=== PATIENT | male | born 1980 | race Caucasian/White ===

== ENCOUNTER 2016-09-15 12:28 | Emergency (ER) | payer OTHER ==
[~2016-09-15] VITALS: Ht 157.5 cm; Wt 81.6 kg
--- NOTE | 2016-09-15 13:07 | ED GENERAL ADULT ---
History of Present Illness General Chief Complaint: General Adult Stated Complaint: "I THINK MY RIBS ARE BROKEN" Source: patient Exam Limitations: no limitations Vital Signs & Intake/Output Vital Signs & Intake/Output Vital Signs Date Time Temp Pulse Resp B/P Pulse O2 O2 Flow FiO2 Ox Delivery Rate 09/15 1436 98.4 70 120/60 09/15 1300 Room Air 09/15 1234 98.3 76 20 128/82 95 Room Air Allergies Coded Allergies: Penicillins (RASH 09/15/16) Reconcile Medications Oxycodone HCl/Acetaminophen (Percocet 5-325 MG Tablet) 5 MG-325 MG TABLET 1-2 TAB PO Q6P PRN pain Triage Note: PT STATES HE HAD A MASSAGE A WEEK AGO AND THE WOMAN STOOD ON HIM. STATES HE THINKS SHE BROKE HIS RIBS. STATES PAIN IN ON RIGHT SIDE AND HARD TO TAKE DEEP BREATHS Triage Nurses Notes Reviewed? yes Onset: Abrupt Duration: week(s): (1), constant, continues in ED Timing: recent history Injury Environment: home No Modifying Factors: none HPI: 36-year-old male comes into emergency room with complaints of right sided rib pain. Patient reports that he had gotten a massage about 5-6 days ago and the masseuse was standing on his back and since then he's had some severe pain to his right rib area. Pain is worse with any type of bending. Hurts with a deep breath. Patient feels like he may have broke something. Patient has point tenderness. Denies any other associated trauma that he can recall. Denies any other associated symptoms. Past History Travel History Traveled to [place] past 21 day No Medical History Any Pertinent Medical History? none Surgical History Surgical History: non-contributory Psychosocial History What is your primary language Arabic Tobacco Use: Never used ETOH Use: occasional use Illicit Drug Use: denies illicit drug use Family History Hx Contributory? No Review of Systems Review of Systems Constitutional: Reports: no symptoms. EENTM: Reports: no symptoms. Respiratory: Reports: no symptoms. Cardiovascular: Reports: see HPI. GI: Reports: no symptoms. Genitourinary: Reports: no symptoms. Musculoskeletal: Reports: see HPI. Skin: Reports: no symptoms. Neurological/Psychological: Reports: no symptoms. Hematologic/Endocrine: Reports: no symptoms. Immunologic/Allergic: Reports: no symptoms. All Other Systems: Reviewed and Negative Physical Exam Physical Exam General Appearance: well developed/nourished, no apparent distress, alert, awake Head: atraumatic, normal appearance Eyes: Bilateral: normal appearance, EOMI. Ears, Nose, Throat: normal pharynx, normal ENT inspection, hearing grossly normal Neck: normal inspection, full range of motion Respiratory: normal breath sounds, no respiratory distress, chest wall tenderness right side Cardiovascular: regular rate/rhythm Gastrointestinal: soft Extremities: normal inspection, normal range of motion Neurologic/Psych: awake, alert, oriented x 3, normal gait, normal mood/affect Skin: intact, normal color Core Measures ACS in differential dx? No CVA/TIA Diagnosis: No Severe Sepsis Present: No Septic Shock Present: No Diagram Body: 1) Point tender with palpation Progress Differential Diagnoses I considered the following diagnoses in my evaluation of the patient: Rib fracture, pneumothorax, shingles, KS, muscle strain Plan of Care: Current Medications Sig/Iza Start time Last Medication Dose Stop Time Status Admin Oxycodone/ 1 TAB ONCE ONE 09/15 1430 UNVr Acetaminophen 09/15 1431 (Percocet) Diagnostic Imaging: Viewed by Me: Radiology Read. Discussed w/RAD: Radiology Read. Radiology Impression: SERVICE DATE: 09/15/16 EXAM TYPE: RAD - XRY-RIBS UNILATERAL-RIGHT EXAMINATION: XR RIBS, RIGHT CLINICAL INFORMATION: Trauma. Patient fell. Anterior mid rib pain. COMPARISON: None TECHNIQUE: 3] views and single PA view of the chest submitted. FINDINGS: The lungs are clear. No evidence of pneumothorax or pleural effusion. The heart is not enlarged. No displaced rib fractures are seen. IMPRESSION: Unremarkable examination. No displaced rib fractures are seen. The lungs are clear. DICTATED BY: JENNIFER JOHN MD DATE/TIME DICTATED:09/15/161410 PIECE DYER:BRENDA DATE/TIME TRANSCRIBED:09/15/161410 Initial ED EKG: none Departure Departure Disposition: HOME OR SELF CARE Condition: Stable Clinical Impression Primary Impression: Intercostal muscle strain Referrals: GRAY NELSON MD (PCP/Family) Additional Instructions: Take Percocet for pain. Take good deep breaths at home. Return if any other concerns worsening symptoms. Follow-up with your primary care doctor. Please go over all results of today's visit with your primary care doctor. Contact your primary care doctor to let them know you were here in the emergency room. There may be nonspecific findings which may not be related to your visit today here in the emergency room but may require further evaluation and chronic monitoring by your primary care doctor. If you had a laceration today the chance of foreign body always remains. You should follow-up with your primary care doctor for recheck in 3-5 days for a wound check. If you had an x-ray done there is a chance that a fracture could have been missed on initial read and you should follow-up with your primary care doctor for repeat x-rays if symptoms persist. If your blood pressure was elevated here in the emergency room please have rechecked by her primary care doctor within the next 48 hours by your primary care doctor. If you were prescribed a narcotic here in the emergency room or any type of controlled substances you're not allowed to drive while taking this medication or operate any type of heavy machinery. Narcotics can make you feel lightheaded dizziness nausea and can cause constipation. You may need to pick pulling machine operator a stool softener. Thank you for choosing [facility] emergency room. Please return to the emergency room immediately if you have any other concerns worsening of symptoms. Departure Forms: Customer Survey General Discharge Information Prescriptions: Current Visit Scripts Oxycodone HCl/Acetaminophen (Percocet 5-325 MG Tablet) 1-2 TAB PO Q6P PRN pain #10 TAB Comments 09/15/2016 4:23:49 PM no acute fracture. Patient's pain is completely reproducible and worse with range of motion making it very consistent with musculoskeletal pain. No suspicion for KS. Due to the fact the pain is reproducible and point tender on exam is consistent with musculoskeletal pain and no further workup is needed at this time. Critical Care Note Critical Care Note Critical Care Time: non-applicable
--- NOTE | 2016-09-15 14:16 | RADIOLOGY REPORT ---
EXAMINATION: XR RIBS, RIGHT CLINICAL INFORMATION: Trauma. Patient fell. Anterior mid rib pain. COMPARISON: None TECHNIQUE: 3] views and single PA view of the chest submitted. FINDINGS: The lungs are clear. No evidence of pneumothorax or pleural effusion. The heart is not enlarged. No displaced rib fractures are seen. IMPRESSION: Unremarkable examination. No displaced rib fractures are seen. The lungs are clear.
[2016-09-15] MEDS ORDERED: PERCOCET 5-3251 EACH PO (14:19)
[2016-09-15 14:36] VITALS: BP 120/60
== END 2016-09-15 14:36 ==
LOC: ERH 12:28
DX: S29.011A Strain of muscle and tendon of front wall of thorax, initial encounter (principal); X58.XXXA Exposure to other specified factors, initial encounter
CPT/HCPCS: 71100-RT